=== PATIENT | female | born 1960 | race American Indian/Alaskan Native ===

== ENCOUNTER 2018-01-08 12:07 | Emergency (ER) | payer SELFPAY ==
[2018-01-08 13:22] LABS: Basophils # (Auto) 0.1 K/mm3 (0.0-0.1); Basophils % (Auto) 1.2 % (0.0-1.8); Eosinophils # (Auto) 0.2 K/mm3 (0.0-0.4); Eosinophils % (Auto) 2.6 % (0.0-4.3); Hematocrit 43.5 % (30.3-42.9); Hemoglobin 14.1 gm/dl (10.1-14.3); Lymphocytes # (Auto) 1.9 K/mm3 (1.2-5.4); Lymphocytes % (Auto) 24.1 % (13.4-35.0); Mean Corpuscular HGB Conc 32 % (30-34); Mean Corpuscular Hemoglobin 27 pg (28-32); Mean Corpuscular Volume 84 fl (79-97); Monocytes # (Auto) 0.5 K/mm3 (0.0-0.8); Monocytes % (Auto) 5.8 % (0.0-7.3); Platelet Count 230 K/mm3 (140-440); Red Blood Count 5.17 M/mm3 (3.65-5.03); Red Cell Distribution Width 15.4 % (13.2-15.2)
[2018-01-08 13:38] LABS: Bilirubin,Urine NEG (Negative); Blood,Urine SM (Negative); Color,Urine Yellow (Yellow); Mucus,Urine FEW /HPF; Protein,Urine <15 mg/dL mg/dL (Negative); Urobilinogen,Urine < 2.0 mg/dL (<2.0)
[2018-01-08 13:42] LABS: Alanine Aminotransferase 21 units/L (7-56); Albumin 4.2 g/dL (3.9-5); BUN/Creatinine Ratio 18; Blood Urea Nitrogen 9 mg/dL (7-17); Calcium 9.3 mg/dL (8.4-10.2); Hemolysis Index 1
[2018-01-08 13:49] LABS: Amphetamine Screen,Urine PRESUMPTIVE NEGATIVE; Benzodiazepines Screen,Urine PRESUMPTIVE NEGATIVE; Cocaine Screen,Urine PRESUMPTIVE NEGATIVE; Methadone Screen,Urine PRESUMPTIVE NEGATIVE; Opiate Screen,Urine PRESUMPTIVE NEGATIVE
[2018-01-08 14:38] LABS: Cannabinoid Screen,Urine PRESUMPTIVE POSITIVE
--- NOTE | 2018-01-08 19:50 | Cat Scan Report ---
FINAL REPORT EXAM: CT HEAD/BRAIN WO CON HISTORY: headache TECHNIQUE: Standard unenhanced CT of the head at 5.0 millimeter axial increments. PRIORS: None. FINDINGS: There is a large multilobulated isodense mass in the right frontal lobe paramedian region. This measures at least 2.2 x 3.6 cm (axial image 30). It extends inferiorly to the floor frontal lobes where it measures 4.8 x 4.1 cm (axial image 20). There is midline shift of the anterior falx to the left by at least 14 mm. Extensive mass effect on the frontal horns bilaterally is seen. No evidence for downward herniation is seen. The suprasellar cistern and ambient cisterns are still patent. There is no evidence for acute intracranial hemorrhage or acute ischemia/ infarction. No evidence for acute skull fracture is seen. No abnormality in the overlying scalp soft tissues is seen. Visualized paranasal sinuses are clear. IMPRESSION: Large multilobulated isodense mass in the right frontal region along the anterior falx. Mass effect on the adjacent ventricular system is seen and midline shift to the left is present. No downward herniation is seen. Further evaluation with MRI is recommended. The if not available, enhanced CT may be helpful.
--- NOTE | 2018-01-08 21:57 | Emergency Department Report ---
HPI - General Chief Complaint: Altered Mental Status Time Seen by Provider: 01/08/18 19:00 - HPI HPI: The patient is a 57-year-old female presents for evaluation of altered mental status for the past 2-3 weeks. The patient and her significant other reported constant and moderate in severity confusion, disorientation, and episodic urinary incontinence, worsening for the past one week, exacerbated with exertion. The patient denies fever, head injury, headache, neck pain, neck stiffness, vision or hearing changes, smell or taste changes, paresthesias, facial drooping, lateralizing motor deficit, slurred speech, seizure-like activity, bowel incontinence or retention. ED Past Medical Hx - Past Medical History Previous Medical History?: No - Surgical History Past Surgical History?: No - Social History Smoking Status: Never Smoker Substance Use Type: None ED Review of Systems ROS: Stated complaint: MENTAL HEALTH EVALUATION Other details as noted in HPI Constitutional: denies: fever ENT: denies: throat or neck pain Respiratory: denies: cough, shortness of breath Cardiovascular: denies: chest pain Endocrine: denies unexplained weight loss or gain Gastrointestinal: denies: abdominal pain, nausea Genitourinary: denies: dysuria Musculoskeletal: denies: leg swelling Skin: denies: rash Neurological: reports AMS and urine incontinence denies: headache Hematological/Lymphatic: denies: easy bleeding or easy bruising Psych: denies sadness or hopelessness Physical Exam - Physical Exam Vital Signs: Vital Signs 01/08/18 01/08/18 01/08/18 12:20 17:09 17:15 Temperature 98.6 F Pulse Rate 64 65 67 Respiratory 16 10 L 14 Rate Blood Pressure 143/90 138/70 O2 Sat by Pulse 99 100 98 Oximetry 01/08/18 01/08/18 01/08/18 17:31 17:45 18:01 Temperature Pulse Rate 63 66 80 Respiratory 18 12 19 Rate Blood Pressure 121/95 136/82 136/82 O2 Sat by Pulse 99 97 95 Oximetry 01/08/18 01/08/18 01/08/18 18:15 18:30 19:35 Temperature Pulse Rate 66 70 65 Respiratory 14 13 Rate Blood Pressure 144/81 159/104 159/104 O2 Sat by Pulse 99 99 Oximetry 01/08/18 01/08/18 01/08/18 19:45 20:01 20:15 Temperature Pulse Rate 66 68 70 Respiratory 11 L 12 12 Rate Blood Pressure 159/104 159/104 125/66 O2 Sat by Pulse 98 98 100 Oximetry 01/08/18 01/08/18 20:31 20:45 Temperature Pulse Rate 69 67 Respiratory 13 16 Rate Blood Pressure 138/60 138/60 O2 Sat by Pulse 99 99 Oximetry Physical Exam: General: well-nourished, well-developed, no acute distress Head: Normocephalic, atraumatic Eyes: normal sclera, right eye lateral deviation present,PERRL, EOM intact, ENT: Mucous membranes are pink and moist Neck: trachea midline, neck supple, No neck stiffness, no cervical adenopathy Respiratory: Breath sounds equal bilaterally, no wheezing, rales, or rhonchi Cardio: S1 and S2 present, no murmurs, rubs, gallops, capillary refill is brisk Abdomen: Normoactive bowel sounds, soft abdomen, no rigidity, no guarding or rebound tenderness Musc: No pitting edema Skin: No rash Neuro: alert oriented x3, normal cognition, speech normal, no facial drooping, no uvula or tongue deviation on protrusion, no deficit with rotation of neck or shoulder shrug, no obvious gross motor deficit in the upper or lower extremities with flexion or extension at the shoulder, elbow, wrist, hip, knee, or ankle bilaterally, no obvious gross sensation deficit, 2+ symmetric reflexes on DTR testing, no obvious gross coordination deficit, romberg negative Psych: Normal affect ED Course Vital Signs 01/08/18 01/08/18 01/08/18 12:20 17:09 17:15 Temperature 98.6 F Pulse Rate 64 65 67 Respiratory 16 10 L 14 Rate Blood Pressure 143/90 138/70 O2 Sat by Pulse 99 100 98 Oximetry 01/08/18 01/08/18 01/08/18 17:31 17:45 18:01 Temperature Pulse Rate 63 66 80 Respiratory 18 12 19 Rate Blood Pressure 121/95 136/82 136/82 O2 Sat by Pulse 99 97 95 Oximetry 01/08/18 01/08/18 01/08/18 18:15 18:30 19:35 Temperature Pulse Rate 66 70 65 Respiratory 14 13 Rate Blood Pressure 144/81 159/104 159/104 O2 Sat by Pulse 99 99 Oximetry 03/01/18 03/01/18 03/01/18 19:45 20:01 20:15 Temperature Pulse Rate 66 68 70 Respiratory 11 L 12 12 Rate Blood Pressure 159/104 159/104 125/66 O2 Sat by Pulse 98 98 100 Oximetry 01/08/18 01/08/18 20:31 20:45 Temperature Pulse Rate 69 67 Respiratory 13 16 Rate Blood Pressure 138/60 138/60 O2 Sat by Pulse 99 99 Oximetry ED Medical Decision Making - Lab Data Result diagrams: 01/08/18 13:05 01/08/18 13:05 - Medical Decision Making The patient was seen and examined by myself. The patient is placed on a artificial breast fabricator and continuous pulse ox. On initial evaluation, the patient was found to be in no distress. Evaluation orders were placed. CT scan the head reveals a large multilobulated mass in the right frontal region, 4.8 x 4.1 cm in largest diameter, associated with 14 mm of midline shift and mass effect on the frontal horns bilaterally. The on-call neurosurgeon Dr. Abad at [facility] is contacted. She agrees to accept the patient for transfer. The patient is transferred in serious condition. Critical care attestation.: If time is entered above; I have spent that time in minutes in the direct care of this critically ill patient, excluding procedure time. 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
[2018-01-08 22:54] VITALS: BP 128/64
== END 2018-01-09 00:19 | disposition other institution (70) ==
LOC: ED 12:07
DX: G91.9 Hydrocephalus, unspecified (principal)
CPT/HCPCS: 36415; 70450; 80053; 80307; 81001; 82962; 84443; 85025; 93005; 93010; 99284; G0480; 80320

== ENCOUNTER 2018-04-04 12:01 | Emergency (ER) | payer SELFPAY ==
[2018-04-04 12:10] VITALS: BP 169/100
[2018-04-04] MEDS ORDERED: ASPIRIN PO ONE (12:10)
[2018-04-04 12:55] LABS: Basophils # (Auto) 0.1 K/mm3 (0.0-0.1); Eosinophils # (Auto) 0.4 K/mm3 (0.0-0.4); Eosinophils % (Auto) 4.9 % (0.0-4.3); Hemoglobin 14.7 gm/dl (10.1-14.3); Lymphocytes # (Auto) 2.7 K/mm3 (1.2-5.4); Lymphocytes % (Auto) 30.4 % (13.4-35.0); Mean Corpuscular HGB Conc 33 % (30-34); Mean Corpuscular Hemoglobin 27 pg (28-32); Mean Corpuscular Volume 82 fl (79-97); Monocytes # (Auto) 0.6 K/mm3 (0.0-0.8); Monocytes % (Auto) 6.9 % (0.0-7.3); Platelet Count 266 K/mm3 (140-440); Red Blood Count 5.48 M/mm3 (3.65-5.03); Red Cell Distribution Width 15.9 % (13.2-15.2)
[2018-04-04 13:18] LABS: BUN/Creatinine Ratio 20; Blood Urea Nitrogen 8 mg/dL (7-17); Calcium 9.6 mg/dL (8.4-10.2); Hemolysis Index 100
[2018-04-04] MEDS ORDERED: ASPIRIN ONE (14:52)
--- NOTE | 2018-04-04 15:06 | XRay Report ---
FINAL REPORT EXAM: XR CHEST ROUTINE 2V HISTORY: chest pain TECHNIQUE: Chest, two views PRIORS: None. FINDINGS: The heart size is normal. Mediastinal contours are normal. Pulmonary vasculature is not congested. The lungs are clear. There are no pleural effusion seen. There is no evidence of pneumothorax. IMPRESSION: There is no acute abnormality identified.
--- NOTE | 2018-04-04 15:14 | Emergency Department Report ---
ED Chest Pain HPI - General Chief Complaint: Chest Pain Stated Complaint: CHEST/LEFT ARM/HEAD PAIN Time Seen by Provider: 04/04/18 14:54 Source: patient Mode of arrival: Ambulatory Limitations: No Limitations - History of Present Illness Initial Comments: 57-year-old female was brought in for chest pain patient had a recent meningioma surgery done at [place] and states that she had a panic attack last night she started feeling left arm heaviness and left chest pain. Patient states that is resolved now. She denies any nausea which has been shortness of breath. I had a long conversation with the patient to get her admitted to the hospital but pt is refusing, all risks including explained. Patient does not want to be admitted all risks including explained. MD Complaint: chest pain -: Gradual Onset: during rest Pain Location: left chest Pain Radiation: none Severity: mild Severity scale (0 -10): 1 Quality: aching Consistency: now resolved Improves With: nothing Worsens With: nothing re: denies: nausea, vomting, diaphoresis, dyspnea, sense of impending doom Other Symptoms: denies: cough, fever, syncope, rash, acid taste in mouth, leg swelling, palpitations, burping Treatments Prior to Arrival: none - Related Data On Oral Contraceptives: No Allergies Allergy/AdvReac Type Severity Reaction Status Date / Time No Known Allergies Allergy Verified 04/04/18 12:07 Heart Score - HEART Score History: Slightly suspicious EKG: Normal Age: 45-65 Risk factors: 1-2 risk factors Troponin: < normal limit HEART Score: 2 - Critical Actions Critical Actions: 0-3 pts:0.9-1.7%risk of adverse cardiac event.Candidate for discharge ED Review of Systems ROS: Stated complaint: CHEST/LEFT ARM/HEAD PAIN Other details as noted in HPI Constitutional: denies: chills, fever Eyes: denies: eye pain, eye discharge, vision change ENT: denies: ear pain, throat pain Respiratory: denies: cough, shortness of breath, wheezing Cardiovascular: chest pain. denies: palpitations Endocrine: no symptoms reported Gastrointestinal: denies: abdominal pain, nausea, diarrhea Genitourinary: denies: urgency, dysuria, discharge Musculoskeletal: denies: back pain, joint swelling, arthralgia Skin: denies: rash, lesions Neurological: denies: headache, weakness, paresthesias Psychiatric: denies: anxiety, depression Hematological/Lymphatic: denies: easy bleeding, easy bruising ED Past Medical Hx - Past Medical History Hx Hypertension: Yes Additional medical history: brain tumor - Surgical History Additional Surgical History: brain tumor removed 01/25 - Social History Smoking Status: Never Smoker Substance Use Type: None ED Physical Exam - General Limitations: No Limitations General appearance: alert, in no apparent distress - Head Head exam: Present: atraumatic, normocephalic - Eye Eye exam: Present: normal appearance - ENT ENT exam: Present: mucous membranes moist - Neck Neck exam: Present: normal inspection - Respiratory Respiratory exam: Present: normal lung sounds bilaterally. Absent: respiratory distress - Cardiovascular Cardiovascular Exam: Present: regular rate, normal rhythm. Absent: systolic murmur, diastolic murmur, rubs, gallop - GI/Abdominal GI/Abdominal exam: Present: soft, normal bowel sounds - Extremities Exam Extremities exam: Present: normal inspection - Back Exam Back exam: Present: normal inspection - Neurological Exam Neurological exam: Present: alert, oriented X3 - Psychiatric Psychiatric exam: Present: normal affect, normal mood - Skin Skin exam: Present: warm, dry, intact, normal color. Absent: rash ED Course Vital Signs 04/04/18 12:07 Temperature 98.8 F Pulse Rate 94 H Respiratory 18 Rate Blood Pressure 169/100 O2 Sat by Pulse 98 Oximetry ED Medical Decision Making - Lab Data Result diagrams: 04/04/18 12:45 04/04/18 12:45 - Medical Decision Making 57-year-old female with no significant past medical history had a recent meningioma surgery done came in complaining of chest pain that started yesterday. Patient's blood work is within normals. troponin x 1 is negative. Discussed with patient about admission, she wants to sign out against medical advice, all risks explained.Patient will sign an AGAINST MEDICAL ADVICE and follow-up with the family doctor Critical care attestation.: If time is entered above; I have spent that time in minutes in the direct care of this critically ill patient, excluding procedure time. ED Disposition Clinical Impression: Chest pain, Left against medical advice Disposition: - LEFT AGAINST MED ADVICE Is pt being admited?: No Condition: Stable Instructions: Chest Pain (ED) Referrals: PRIMARY CARE, [Primary Care Provider] - 3-5 Days KIM RAMIREZ MD [Staff Physician] - 3-5 Days Forms: AMA Form
== END 2018-04-04 15:16 | disposition left against medical advice (07) ==
LOC: ED 12:01
DX: R07.89 Other chest pain (principal); I10 Essential (primary) hypertension
CPT/HCPCS: 36415; 71046; 80048; 84484; 85025; 93005; 93010; 99284

== ENCOUNTER 2021-02-25 15:54 | Emergency (ER) | payer SELFPAY ==
[2021-02-25 16:22] LABS: Basophils # (Auto) 0.1 K/mm3 (0.0-0.1); Eosinophils # (Auto) 0.2 K/mm3 (0.0-0.4); Eosinophils % (Auto) 2.6 % (0.0-4.3); Hematocrit 42.8 % (30.3-42.9); Hemoglobin 14.4 gm/dl (10.1-14.3); Lymphocytes # (Auto) 2.6 K/mm3 (1.2-5.4); Lymphocytes % (Auto) 27.7 % (13.4-35.0); Mean Corpuscular HGB Conc 34 % (30-34); Mean Corpuscular Volume 80 fl (79-97); Monocytes # (Auto) 0.6 K/mm3 (0.0-0.8); Monocytes % (Auto) 5.9 % (0.0-7.3); Platelet Count 231 K/mm3 (140-440); Red Blood Count 5.37 M/mm3 (3.65-5.03); Red Cell Distribution Width 16.8 % (13.2-15.2)
--- NOTE | 2021-02-25 16:26 | Consultation ---
History of Present Illness History of present illness: [facility] Consult Note # Demographics Consult Type: Acute Stroke Level 1 (0-4.5 hrs) Patient Location: Emergency Room First Name: Ramo Last Name: Maisha Date of : 1960 Age: 60 Gender: Female Time of Initial Page ( Time): 02/25/2021, 16:02 Time of Return Call ( Time): 02/25/2021, 16:02 # HPI Chief Complaint: facial droop History: 60F with prior meningioma s/p resection 01/2019, blind in right eye since 3 yo presents with right facial droop. LKWT sometime this morning. # Scores Time of exam and NIHSS (): 02/25/2021, 16:16 Level of Consciousness 1a: [0] = Alert; keenly responsive LOC Questions 1b: [0] = Answers both questions correctly LOC Commands 1c: [0] = Performs both tasks correctly Best Gaze 2: [0] = Normal Visual 3: [0] = No visual loss Facial Palsy 4: [2] = Partial paralysis Motor Arm Left 5a: [0] = No drift Motor Arm Right 5b: [0] = No drift Motor Leg Left 6a: [1] = Drift Motor Leg Right 6b: [1] = Drift Limb Ataxia 7: [0] = Absent Sensory 8: [0] = Normal Best Language 9: [0] = No aphasia Dysarthria 10: [0] = Normal Extinction and Inattention 11: [0] = No abnormality NIHSS Total: 4 # Data Time Head CT personally read by me (): 02/25/2021, 16:[address]: no bleed, preliminarily reviewed by me, please refer to radiology read for official reading, bi-frontal encephalomalacia # Assessment 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, however with slight drift in both legs and vague sensory changes in R face and L leg, need to rule out stroke # Plan Thrombolytic/Intervention: NOT IV Thrombolytic or IA Intervention Thrombolytic Exclusion: > 4.5 hours Intraarterial Exclusion: clinically consistent with small vessel disease Target Blood Pressure: SBP < 220, DBP < 105 Labs: hemoglobin A1c, lipid panel Imaging: (urgency: STAT in ED): MRI Brain without contrast Medication: ASA 325, prednisone 60mg Other: telemetry monitoring, I have discussed my recommendations with the referring provider Additional Recommendations: If MRI negative for stroke, stop aspirin and continue prednisone to complete course. If MRI shows stroke, stop prednisone, start atorvastatin and complete stroke work-up with TTE w bubble, carotid ultrasounds Disposition: admit # Logistics Telemedicine: Interactive 2 way audio and visual telecommunication technology was utilized during this visit Electronically signed at 02/25/2021 16:26 (Eastern Time) by Rod Taylor MD Medications and Allergies Allergies Allergy/AdvReac Type Severity Reaction Status Date / Time No Known Allergies Allergy Verified 04/04/18 12:07 Results - Laboratory Findings CBC and BMP: 02/25/21 16:16 Abnormal Lab Findings: Abnormal Labs 02/25/21 16:16 RBC 5.37 H Hgb 14.4 H MCH 27 L RDW 16.8 H
[2021-02-25 16:33] LABS: INR 0.97 (0.87-1.13)
[2021-02-25 16:34] LABS: Partial Thromboplastin Time 22.6 Sec. (24.2-36.6)
--- NOTE | 2021-02-25 16:40 | Cat Scan Report ---
CT head/brain wo con INDICATION / CLINICAL INFORMATION: MAIN. TECHNIQUE: All CT scans at this location are performed using CT dose reduction for ALARA by means of automated e xposure control. COMPARISON: None available. FINDINGS: Postsurgical changes seen in the frontal region. Ventricle Size is normal. No mass or mass effect is seen. There is no evidence of intracranial hemorrhage. No obvious new area of infarction is identifie d. Visualized paranasal sinuses show retention cyst in the left maxillary sinus. IMPRESSION: Postsurgical change in the frontal region. No definite acute abnormality CODE STROKE: Time of Communication (INTERNATIONAL BANK MANAGER/CDT): 1530 hours central time Licensed Practitioner Receiving Report: Dr. Yeung Signer Name: Roverto Berger MD FACR Signed: 02/25/2021 4:36 PM Workstation Name: [id number]
[2021-02-25 16:41] LABS: Blood Urea Nitrogen 12 mg/dL (7-17); Calcium 9.3 mg/dL (8.4-10.2); Hemolysis Index 15
--- NOTE | 2021-02-25 16:43 | Emergency Department Report ---
ED Neuro Deficit HPI - General Chief Complaint: Neuro Symptoms/Deficit Stated Complaint: POSS STROKE Time Seen by Provider: 02/25/21 16:07 Source: patient, family Mode of arrival: Wheelchair Limitations: No Limitations - History of Present Illness Initial Comments: 60-year-old female, history of right eye blindness, meningioma status post resection in 2019, borderline hypertension, presents to ED with facial droop. Patient states she awoke this morning and noticed that her right side of her face was drooping and she is unable to close her right eye. She also reports some numbness and tingling to the right face. Patient states when she went to b ed last night around 9 PM, she was fine she did not have any sort of facial droop. Patient also reports some tingling in the legs. Patient states her last MRI for follow-up on her meningioma excision was in November 2019 and it was normal. Patient also reports she has received the first dose of her [place] COVID-19 vaccine. She is due for her second dose next week. -: This morning Last Observed Normal: 21:00 Location: right face Presenting Symptoms: Present: Weak/Paralyzed One Side History of same: No Place: home Severity: moderate Quality: weak, tingling Improves With: none Worsens With: none On Anticoagulants: No Associated Symptoms: denies other symptoms Treatments Prior to Arrival: none - Related Data Home Medications: Previous Rx's Medication Instructions Recorded Last Taken Type Aspirin 325 mg PO QDAY #30 tablet 02/25/21 Unknown Rx Prednisone [predniSONE 10 mg 10 mg PO .TAPER #1 tab.ds.pk 02/25/21 Unknown Rx (6-Day Pack, 21 Tabs)] Simvastatin 40 mg PO QHS #30 tablet 02/25/21 Unknown Rx Soft Lens Rinse,Store Solution 360 ml MC TID #1 bottle 02/25/21 Unknown Rx [Saline Sensitive Eyes] amLODIPine 5 mg PO DAILY #30 tab 02/25/21 Unknown Rx Allergies/Adverse Reactions: Allergies Allergy/AdvReac Type Severity Reaction Status Date / Time No Known Allergies Allergy Verified 04/04/18 12:07 ED Review of Systems ROS: Stated complaint: POSS STROKE Other details as noted in HPI Comment: All other systems reviewed and negative Constitutional: denies: fever Neurological: weakness, numbness. denies: headache ED Past Medical Hx - Past Medical History Previous Medical History?: Yes Hx Hypertension: Yes Additional medical history: brain tumor - Surgical History Additional Surgical History: brain tumor removed 01/25 - Social History Smoking Status: Never Smoker Substance Use Type: None - Medications Home Medications: Home Medications Medication Instructions Recorded Confirmed Last Taken Type Aspirin 325 mg PO QDAY #30 tablet 02/25/21 Unknown Rx Prednisone [predniSONE 10 mg 10 mg PO .TAPER #1 tab.ds.pk 02/25/21 Unknown Rx (6-Day Pack, 21 Tabs)] Simvastatin 40 mg PO QHS #30 tablet 02/25/21 Unknown Rx Soft Lens Rinse,Store Solution 360 ml MC TID #1 bottle 02/25/21 Unknown Rx [Saline Sensitive Eyes] amLODIPine 5 mg PO DAILY #30 tab 02/25/21 Unknown Rx ED Neuro Physical Exam - General Limitations: No Limitations General appearance: alert, in no apparent distress Suspected Stroke: Yes - Head Head exam: Present: atraumatic, normocephalic - Eye Eye exam: Present: normal appearance, EOMI - ENT ENT exam: Present: mucous membranes moist - Neck Neck exam: Present: normal inspection - Respiratory Respiratory exam: Present: normal lung sounds bilaterally. Absent: respiratory distress - Cardiovascular Cardiovascular Exam: Present: regular rate, normal rhythm - GI/Abdominal GI/Abdominal exam: Present: soft. Absent: distended, tenderness - Extremities Exam Extremities exam: Present: normal inspection - Neurological Exam Neurological exam: Present: alert, oriented X3 - NIHSS Assessment Interval: Baseline 1a. Level of Consciousness: alert/keenly responsive 1b. LOC Questions: answers both correctly 1c. LOC Commands: performs tasks correctly 2. Best Gaze: normal 3. Visual: no visual loss 4. Facial Palsy: partial paralysis 5b. Motor Arm Right: no drift 5a. Motor Arm Left: no drift 6a. Motor Leg Left: no drift 6b. Motor Leg Right: no drift 7. Limb Ataxia: absent 8. Sensory: normal 9. Best Language: no aphasia 10. Dysarthria: normal 11. Extinction/Inattention: no abnormality Total Score: 2 Stroke Severity: Minor Stroke - Psychiatric Psychiatric exam: Present: normal affect, normal mood - Skin Skin exam: Present: warm, dry, intact, normal color ED Course Vital Signs 02/25/21 02/25/21 02/25/21 16:48 17:00 17:02 Temperature 99.3 F Pulse Rate 73 96 H 98 H Respiratory 12 17 18 Rate Blood Pressure 167/94 Blood Pressure 196/98 [Right] O2 Sat by Pulse 98 99 98 Oximetry 02/25/21 02/25/21 02/25/21 17:13 17:16 17:30 Temperature Pulse Rate 95 H Respiratory 14 10 L Rate Blood Pressure 171/100 171/100 Blood Pressure [Right] O2 Sat by Pulse 100 100 Oximetry 02/25/21 02/25/21 02/25/21 17:46 18:00 18:16 Temperature Pulse Rate Respiratory 14 13 15 Rate Blood Pressure 179/98 165/90 160/96 Blood Pressure [Right] O2 Sat by Pulse 100 100 99 Oximetry 02/25/21 02/25/21 18:30 18:46 Temperature Pulse Rate Respiratory 15 13 Rate Blood Pressure 160/96 155/99 Blood Pressure [Right] O2 Sat by Pulse 100 99 Oximetry - Lab Data Result diagrams: 02/25/21 16:16 02/25/21 16:16 Lab Results 02/25/21 02/25/21 02/25/21 Range/Units 16:16 16:16 16:16 WBC 9.4 (4.5-11.0) K/mm3 RBC 5.37 H (3.65-5.03) M/mm3 Hgb 14.4 H (10.1-14.3) gm/dl Hct 42.8 (30.3-42.9) % MCV 80 (79-97) fl MCH 27 L (28-32) pg MCHC 34 (30-34) % RDW 16.8 H (13.2-15.2) % Plt Count 231 (140-440) K/mm3 Lymph % (Auto) 27.7 (13.4-35.0) % Sharkey % (Auto) 5.9 (0.0-7.3) % Eos % (Auto) 2.6 (0.0-4.3) % Baso % (Auto) 1.0 (0.0-1.8) % Lymph # (Auto) 2.6 (1.2-5.4) K/mm3 Sharkey # (Auto) 0.6 (0.0-0.8) K/mm3 Eos # (Auto) 0.2 (0.0-0.4) K/mm3 Baso # (Auto) 0.1 (0.0-0.1) K/mm3 Seg Neutrophils % 62.8 (40.0-70.0) % Seg Neutrophils # 5.9 (1.8-7.7) K/mm3 PT 12.7 (12.2-14.9) Sec. INR 0.97 (0.87-1.13) APTT 22.6 L (24.2-36.6) Sec. Sodium 146 H (137-145) mmol/L Potassium 3.8 (3.6-5.0) mmol/L Chloride 107.8 H (98-107) mmol/L Carbon Dioxide 29 (22-30) mmol/L Anion Gap 13 mmol/L BUN 12 (7-17) mg/dL Creatinine 0.6 (0.6-1.2) mg/dL Estimated GFR > 60 ml/min BUN/Creatinine Ratio 20 % Glucose 136 H (65-100) mg/dL Calcium 9.3 (8.4-10.2) mg/dL Total Bilirubin (0.1-1.2) mg/dL Direct Bilirubin (0-0.2) mg/dL Indirect Bilirubin mg/dL AST (5-40) units/L ALT (7-56) units/L Alkaline Phosphatase (35-129) units/L Total Protein (6.3-8.2) g/dL Albumin (3.9-5) g/dL Albumin/Globulin Ratio % 04/18/ Range/Units 16:16 WBC (4.5-11.0) K/mm3 RBC (3.65-5.03) M/mm3 Hgb (10.1-14.3) gm/dl Hct (30.3-42.9) % MCV (79-97) fl MCH (28-32) pg MCHC (30-34) % RDW (13.2-15.2) % Plt Count (140-440) K/mm3 Lymph % (Auto) (13.4-35.0) % Sharkey % (Auto) (0.0-7.3) % Eos % (Auto) (0.0-4.3) % Baso % (Auto) (0.0-1.8) % Lymph # (Auto) (1.2-5.4) K/mm3 Sharkey # (Auto) (0.0-0.8) K/mm3 Eos # (Auto) (0.0-0.4) K/mm3 Baso # (Auto) (0.0-0.1) K/mm3 Seg Neutrophils % (40.0-70.0) % Seg Neutrophils # (1.8-7.7) K/mm3 PT (12.2-14.9) Sec. INR (0.87-1.13) APTT (24.2-36.6) Sec. Sodium (137-145) mmol/L Potassium (3.6-5.0) mmol/L Chloride (98-107) mmol/L Carbon Dioxide (22-30) mmol/L Anion Gap mmol/L BUN (7-17) mg/dL Creatinine (0.6-1.2) mg/dL Estimated GFR ml/min BUN/Creatinine Ratio % Glucose (65-100) mg/dL Calcium (8.4-10.2) mg/dL Total Bilirubin 0.50 (0.1-1.2) mg/dL Direct Bilirubin < 0.2 (0-0.2) mg/dL Indirect Bilirubin 0.3 mg/dL AST 17 (5-40) units/L ALT 22 (7-56) units/L Alkaline Phosphatase 99 (35-129) units/L Total Protein 6.8 (6.3-8.2) g/dL Albumin 4.4 (3.9-5) g/dL Albumin/Globulin Ratio 1.8 % - EKG Data -: EKG Interpreted by Sd EKG shows normal: sinus rhythm, axis, intervals, QRS complexes Rate: normal Interpretation: nonspecific ST-T wave koby - Radiology Data Radiology results: report reviewed, image reviewed - Medical Decision Making 60-year-old female presents to ED with right facial droop, inability to close her right eye, right facial tingling. She also reports she was having trouble keeping food in her mouth while chewing this morning. Patient denies any extremity weakness. CT head is negative for any acute abnormalities. Strength and sensation are intact. Patient has NIH score of 2. 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 However, during his exam patient had some decreased sensation on the left leg so he would like to admit for MRI and stroke rule out. In the meantime he recommends giving aspirin and also prednisone to treat the likely Live's palsy. Spoke with hospitalist, Dr. Stewart, regarding admission. He will come down and see the patient. - Differential Diagnosis Live's Palsy, CVA Critical care attestation.: If time is entered above; I have spent that time in minutes in the direct care of this critically ill patient, excluding procedure time. ED Disposition Clinical Impression: Facial droop, Live's palsy Disposition: TO HOME OR SELFCARE Is pt being admited?: Yes Condition: Stable Prescriptions: Simvastatin 40 mg PO QHS #30 tablet amLODIPine 5 mg PO DAILY #30 tab Aspirin 325 mg PO QDAY #30 tablet Prednisone [predniSONE 10 mg (6-Day Pack, 21 Tabs)] 10 mg PO .TAPER #1 tab.ds.pk Soft Lens Rinse,Store Solution [Saline Sensitive Eyes] 360 ml MC TID #1 bottle Referrals: PRIMARY CARE, [Primary Care Provider] - 7 Days Time of Disposition: 17:24
[2021-02-25 16:44] LABS: BUN/Creatinine Ratio 20
[2021-02-25 16:46] LABS: Alanine Aminotransferase 22 units/L (7-56); Albumin 4.4 g/dL (3.9-5); Bilirubin,Direct < 0.2 mg/dL (0-0.2)
[2021-02-25] MEDS ORDERED: ASPIRIN 325 MG TAB PO ONE (16:57)
[2021-02-25] MEDS ORDERED: predniSONE 20 MG TAB PO ONE (16:57)
[2021-02-25] MEDS ORDERED: hydrALAZINE 20 MG/1 ML INJ IV ONE (18:44)
[2021-02-25 18:48] VITALS: BP 155/99
--- NOTE | 2021-02-26 13:48 | Electrocardiograph Report ---
[facility] Test Date: 2021-02-25 Test Time: 16:51:33 Pat Name: GEN MATIAS Department: Room: Gender: F [employer] Installer: PRAVEEN : 1960 Requested By: DARLENE HUDSON Order Number: [id number] Reading MD: Kel Marquez Measurements Intervals Howes Rate: 89 P: 57 SC: 140 QRS: 64 QRSD: 81 T: -36 QT: 339 QTc: 412 Interpretive Statements Sinus rhythm Nonspecific T abnormalities, diffuse leads No previous ECG available for comparison Electronically Signed On 02-26-2021 13:47:23 EDT by Kel Marquez
== END 2021-02-25 19:29 | disposition home or self-care (01) ==
LOC: ED 15:54
DX: G51.0 Bell's palsy (principal); I10 Essential (primary) hypertension; Z79.899 Other long term (current) drug therapy; Z98.890 Other specified postprocedural states
CPT/HCPCS: 36415; 70450; 80048; 80076; 85025; 85610; 85730; 93005; 99284; J7512